=== PATIENT | female | born 1990 | race Caucasian/White ===

== ENCOUNTER 2016-09-15 06:13 | Emergency (ER) | payer OTHER ==
[2016-09-15 06:20] VITALS: BP 105/70
--- NOTE | 2016-09-15 06:55 | ERNOTE ---
Lower Extremity HPI - General Lower Extremities Pain: ankle: right Time Seen by Provider: 09/15/16 06:41 Source: patient Exam Limitations: no limitations - Immun/Allergies/Home Medications Immunizations: IMMUNIZATION HX Immunizations Up to Date Yes History of Influenza Vaccine Yes Hx Pneumococcal Vaccination No Allergies/Adverse Reactions: Allergies Allergy/AdvReac Type Severity Reaction Status Date / Time No Known Allergies Allergy Verified 09/15/16 06:22 Home Medications: HOME MEDICATIONS Norgestimate-Ethinyl Estradiol [Trinessa Tablet] 1 each PO DAILY 09/15/16 [Last Taken Unknown] - History of Present Illness Narrative: slipped going down the stairs and hurt her right ankle, has medial pain an swelling Occurred: yesterday Location of Incident: home Method of Injury: Reports: fell Reason for Fall: Reports: slipped Loss of Consciousness: Reports: no loss of consciousness Modifying Factors - (Improves): Reports: cold therapy Modifying Factors - (Worsens): Reports: movement Associated Symptoms: Reports: unable to bear weight Other Injuries: Reports: none Review of Systems - Review of Systems Constitutional: Absent: recent illness EYE: Present: no symptoms reported ENT: Present: no symptoms reported Respiratory: Present: no symptoms reported Cardiology: Present: no symptoms reported Gastrointestinal/Abdominal: Present: no symptoms reported Genitourinary: Present: no symptoms reported Musculoskeletal: Present: See HPI. Absent: neck pain Skin: Absent: rash, change in color Neurological: Absent: numbness, tingling Endocrine: Present: no symptoms reported Hematologic/Lymphatic: Present: no symptoms reported Psych: Present: no symptoms reported - Patient's Past Medical History Patient History - Medical: No pertinent hx Patient History - Cardiac/Respiratory: No pertinent hx Patient History - Cancer: No Hx of Cancer Patient History - Surgical Procedures: Appendectomy Patient History - Other: None LMP (females 10-50): now - Social History Living Situations: home Abuse History: No History of abuse Psych History: No pertinent hx Smoking Status: Current every day smoker Have you smoked in the past 12 months: Yes Alcohol Use: occasionally Drug Use: none - Immunizations Immunizations Up to Date: Yes Hx Pneumococcal Vaccination: No History of Influenza Vaccine: Yes Physical Exam - Physical Exam General Appearance: Present: wd/wn, alert, no apparent distress Neck: Present: normal inspection, nontender, supple Back Exam: Present: normal inspection, normal range of motion Extremity Exam: Present: decreased range of motion - right ankle: pain with dorsiflexion, less with plantarflexion, minimal discomfort with eversion or inversion, other - achilles tendon intact and nontender Neurological Exam: Present: alert, oriented Skin Exam: Present: warm/dry, other - mild bruising medially and laterally to right ankle ED Progress - Vital Signs Vital Signs: Vital Signs 09/15/16 06:17 Temperature 37.0 C Pulse Rate 85 Respiratory 16 Rate Blood Pressure 105/70 O2 Sat by Pulse 100 Oximetry - X-Ray X-Ray #1 X-Ray: ankle Interpretation: Reviewed by me X-ray Comments: no fracture or dislocation - Progress/Reassessment Chief Complaint: Ankle Injury/ Pain Departure Clinical Impression: Ankle sprain Qualifiers: Encounter type: initial encounter Involved ligament of ankle: tibiofibular ligament Laterality: right Qualified Code(s): S93.431A - Sprain of tibiofibular ligament of right ankle, initial encounter - Departure Disposition: Home self-care Condition: Good Instructions: Ankle Sprain Additional Instructions: use ibuprofen 600 mg up to 3 times a day as needed. Slowly progress to normal weight bearing as is comfortable
--- OUTSIDE RECORDS SUMMARY | 2016-09-15 07:09 | XMS REPORT | Continuity of Care Document ---
:1990 Author Organization [facility] ([facility]) [place] [address] Phone [phone] Care Team Providers Name Role Phone Unavailable Primary Care Provider Unavailable Source Comments This disclosure is being made pursuant to the Care Everywhere program, applicable federal and state laws, and may not contain all informaitonavailable regarding this patient.[facility] ([facility]) Active Allergies and Adverse Reactions Not on File Current Medications Not on file Active Problems Not on file Social History Tobacco Use Types Packs/Day Years Used Date Never Assessed Plan of Care Health Maintenance Due Date Last Done Comments Hepatitis B Vaccine (1 of 3 - Primary Series) 1990 HPV Vaccine (1 of 3 - Female/Unknown 3 Dose Series) 02/06/2003 Tdap Vaccine 02/06/2003 Cervical Cancer Screening 02/06/2010 Lipid Disorder Screening 02/06/2010 MMR Vaccine 02/06/2010 Td Vaccine 02/06/2010 Varicella Vaccine (1 of 2 - Adult - No Evidence of 02/06/2010 Immunity) Influenza Vaccine: Seasonal (#1) 11/08/2015 Results from Last 3 Months Not on file
== END 2016-09-15 07:36 | disposition home or self-care (01) ==
LOC: ER 06:13
DX: S93.431A Sprain of tibiofibular ligament of right ankle, initial encounter (principal); F17.200 Nicotine dependence, unspecified, uncomplicated; W10.9XXA Fall (on) (from) unspecified stairs and steps, initial encounter; Y92.009 Unspecified place in unspecified non-institutional (private) residence as the place of occurrence of the external cause

== ENCOUNTER 2017-02-04 17:48 | Emergency (ER) | payer SELFPAY ==
[2017-02-04] MEDS ORDERED: IBUPROFEN 600 MG TABLET PO ONE (18:03)
[2017-02-04] MEDS ORDERED: IBUPROFEN 400 MG TABLET PO ONE (18:11)
[2017-02-04] MEDS ORDERED: IBUPROFEN 600 MG TABLET ONE (18:11)
[2017-02-04] MEDS ORDERED: IBUPROFEN 400 MG TABLET ONE (18:12)
--- NOTE | 2017-02-04 18:26 | ERNOTE ---
Medical Problem HPI - Narrative Date of Service: 02/04/17 - General Chief Complaint: Flu Symptoms Time Seen by Provider: 02/04/17 18:11 Source: patient Exam Limitations: no limitations - Immun/Allergies/Home Medications Immunizations: IMMUNIZATION HX Immunizations Up to Date Yes History of Influenza Vaccine No Hx Pneumococcal Vaccination No Allergies/Adverse Reactions: Allergies No Known Allergies Allergy (Verified 02/04/17 18:00) Home Medications: HOME MEDICATIONS Norgestimate-Ethinyl Estradiol [Trinessa Tablet] 1 each PO DAILY 09/15/16 [Last Taken Unknown] Doxycycline Monohydrate 100 mg PO BID #20 tablet 02/04/17 [Last Taken Unknown] predniSONE [Prednisone] 3 tab PO DAILY #9 tab 02/04/17 [Last Taken Unknown] - History of Present History Narrative: Pt. comes in with c/o cough, malaise, fever, and fatigue for three days. Pt. states that she becomes SOB after having a harsh coughing spell. Pt. denies any alleviating factors or prehospital treatment. Review of Systems - Review of Systems Constitutional: Present: fever, chills, diaphoresis, weakness, fatigue, malaise. Absent: recent illness, weight loss, fussy, decreased activity level EYE: Present: no symptoms reported ENT: Present: no symptoms reported Respiratory: Present: cough. Absent: shortness of breath, wheezing Cardiology: Present: no symptoms reported. Absent: chest pain, palpitations, edema Gastrointestinal/Abdominal: Present: no symptoms reported. Absent: nausea, vomiting, diarrhea, abdominal pain Genitourinary: Present: no symptoms reported Musculoskeletal: Present: no symptoms reported. Absent: back pain, joint pain Skin: Present: no symptoms reported. Absent: rash, change in hair/nails Neurological: Present: no symptoms reported. Absent: headache, dizziness/light- headedness, numbness, tingling All Other Systems: All systems neg except as marked - Patient's Past Medical History Patient History - Medical: No pertinent hx Patient History - Cardiac/Respiratory: No pertinent hx Patient History - Cancer: No Hx of Cancer Patient History - Surgical Procedures: Appendectomy Patient History - Other: None - Social History Abuse History: No History of abuse Psych History: No pertinent hx Smoking Status: Current every day smoker Have you smoked in the past 12 months: Yes - Immunizations Immunizations Up to Date: Yes Hx Pneumococcal Vaccination: No History of Influenza Vaccine: No Physical Exam - Physical Exam General Appearance: Present: wd/wn, alert, no apparent distress Head Exam: Present: normal inspection, no evidence of injury Eye Exam: Normal inspection: bilateral, PERRL: bilateral, EOMI: bilateral Ears, Nose, Throat: Present: pharyngeal erythema Neck: Present: normal inspection, nontender. Absent: lymphadenopathy (R), lymphadenopathy (L) Respiratory: Present: no respiratory distress, normal breath sounds, no accessory muscle use, chest nontender, lungs clear Cardiovascular/Chest: Present: regular rate, rhythm, no murmur, normal peripheral pulses Gastrointestinal/Abdominal: Present: normal bowel sounds, nontender Back Exam: Present: normal inspection Extremity Exam: Present: normal inspection Neurological Exam: Present: alert, oriented, normal mood/affect, no motor/ sensory deficits Skin Exam: Present: warm/dry, pallor ED Progress - Date and Time Seen: Date and Time: 02/04/17 19:[address] Cheng and as pt. is not hypoxic, does not look toxic and is improving after mima Ibuprofen it is not going to change treatment plans to do any further testing and pt. is safe to go home. - Results and Orders Patient's Lab Results:: I have reviewed the patient's lab results. - Vital Signs Patient's Vital Signs:: I have reviewed the patient's vital signs. Vital Signs: Vital Signs 02/04/17 17:58 Temperature 39.4 C H Pulse Rate 112 H Respiratory 16 Rate Blood Pressure 144/68 O2 Sat by Pulse 98 Oximetry - X-Ray X-Ray #1 X-Ray: chest Interpretation: Reviewed by me X-ray Comments: LLL consolidation - Progress/Reassessment Chief Complaint: Flu Symptoms Departure Clinical Impression: Pneumonia Qualifiers: Pneumonia type: due to unspecified organism Laterality: left Lung location: lower lobe of lung Qualified Code(s): J18.1 - Lobar pneumonia, unspecified organism - Departure Disposition: Home self-care Condition: Good Instructions: Community-Acquired Pneumonia, Adult, [id number] Additional Instructions: Please follow up wtih your primary provider in 1-2 days. Please return to the ER if you feel worse. Prescriptions: Doxycycline Monohydrate 100 mg PO BID #20 tablet predniSONE [Prednisone] 3 tab PO DAILY #9 tab
[2017-02-04] MEDS ORDERED: predniSONE 20 MG TABLET PO ONE (19:10)
[2017-02-04] MEDS ORDERED: DOXYCYCLINE HYCLATE 100 MG TABLET PO ONE (19:10)
[2017-02-04 19:12] VITALS: BP 109/69
[2017-02-04] MEDS ORDERED: predniSONE 20 MG TABLET ONE (19:13)
[2017-02-04] MEDS ORDERED: DOXYCYCLINE HYCLATE 100 MG TABLET ONE (19:13)
== END 2017-02-04 19:22 | disposition home or self-care (01) ==
LOC: ER 17:48
DX: J18.1 Lobar pneumonia, unspecified organism (principal); F17.200 Nicotine dependence, unspecified, uncomplicated